=== PATIENT | female | born 1945 | race Caucasian/White ===

== ENCOUNTER 2021-09-17 18:25 | Inpatient (IN) | payer MEDICARE, BC ==
[~2021-09-17] VITALS: Ht 162.6 cm; Wt 67.1 kg
[2021-09-17] MEDS ORDERED: LISI20TA30 PO (18:48)
[2021-09-17] MEDS ORDERED: CHOL500050 PO (18:48)
[2021-09-17] MEDS ORDERED: CHLO50TA PO (18:48)
[2021-09-17] MEDS ORDERED: FESO4TAB PO (18:48)
[2021-09-17] MEDS ORDERED: MAGN400T40 PO (18:48)
[2021-09-17] MEDS ORDERED: LORA-259 PO (18:48)
[2021-09-17] MEDS ORDERED: ASPI81TA31 PO (18:48)
--- NOTE | 2021-09-17 19:09 | NUR ---
PT IS IN ROOM #2B. DR WILDER EVALUATED THE PT.
[2021-09-17] MEDS ORDERED: CHOLECALCIFEROL 1,000 UNIT TABLET ONE (20:30)
[2021-09-17] MEDS: CHOLECALCIFEROL 1,000 UNIT TABLET PO SCH (20:33)
[2021-09-17 20:36] LABS: MAGNESIUM 1.9 mg/dL (1.8-2.4)
--- NOTE | 2021-09-17 21:14 | NUR ---
Pt medically cleared by Dr. Cali
[2021-09-17] MEDS ORDERED: OLANZAPINE 5 MG TABLET PO ONE (21:15)
[2021-09-17] MEDS ORDERED: OLANZAPINE 5 MG TABLET ONE (21:16)
--- NOTE | 2021-09-17 21:25 | NUR ---
Report given to Laura CARTER MHU.
[2021-09-17] MEDS ORDERED: MAG HYDROX/AL HYDROX/SIMETH 30 ML LIQUID UDC PO PRN (21:45)
[2021-09-17] MEDS ORDERED: MAGNESIUM HYDROXIDE 30 ML LIQUID UDC PO PRN (21:45)
[2021-09-17] MEDS ORDERED: BLOOD SUGAR DIAGNOSTIC 1 EACH STRIP VI ONE (21:45)
[2021-09-17 22:15] VITALS: BP 148/83
[2021-09-17] MEDS: TEMAZEPAM 7.5 MG CAPSULE PO PRN (22:56)
[2021-09-17] MEDS: ACETAMINOPHEN 325 MG TABLET PO PRN (22:56)
--- NOTE | 2021-09-17 23:00 | NUR ---
GPS: Admitted to unit earlier a 76 yr.old female who was medically cleared in our E.R. Pt.is on a 72 hour hold for GD. Pt.was showing bizarre public behavior,refusing to shower,soiled pants on admission,wandering aimlessly and grossly delusional,per hold. Pt.was uncooperative,angry,refusing to answer questions during admission process. Agitated when asked to remove her multiple bracelets/jewelry. Refused body check despite explanation of importance. Unit rules explained. Pt's rights handbook and advisement given to pt. Safety emphasized. Unable to assess pt's orientation due to refusal to answer staff. Will continue to monitor.
[2021-09-17] MEDS: LORAZEPAM 1 MG TABLET PO PRN (23:57)
[2021-09-18 07:19] LABS: BILIRUBIN,TOTAL 1.3 mg/dL (0.2-1.0); CREATININE 0.7 mg/dL (0.6-1.3); POTASSIUM 3.7 mmol/L (3.5-5.1); TOTAL PROTEIN, SERUM 6.7 g/dL (6.4-8.2)
[2021-09-18 07:53] VITALS: BP 134/75
[2021-09-18] MEDS: CHOLECALCIFEROL 1,000 UNIT TABLET PO SCH (08:45)
[2021-09-18] MEDS ORDERED: OLANZAPINE 5 MG TABLET PO SCH (09:30)
[2021-09-18] MEDS: OLANZAPINE 2.5 MG TABLET PO SCH ×2 (10:32→17:37)
--- NOTE | 2021-09-18 13:00 | NUR ---
Received patient sleeping in her room. Pt. is A/O X 2 -3 to person, place, environment. Pt. is delusional "Can you give me a ride to airport? I need to go to " "Psychiatrist discharged me today. I need to go" "Can I talk to someone in charge, they are keeping me here against my will" Pt. is cooperative, sociable, anxious at times. Pt. is Compliant with medications. Patient is encourage to verbalize concerns. Fall and safety precautions implemented.
[2021-09-18 15:49] VITALS: BP 140/65
--- NOTE | 2021-09-18 18:42 | NUR ---
GPS: PT RECEIVED THIS AFTERNOON ON THE HALLWAY, SOMEWHAT ABXIOUS, TALKING ABOUT "I WANT TO GO TO THE AIRPORT BACK TO [place]". PT COOPERATIVE WITH CARE. TOLERATED MEDS . PT CONFUSED AND EXPLAINED THAT SHE IS ON HOLD AND ON LOCKED IN FACILITY AND CANNOT LEAVE THE UNIT. DENIES PAIN OR DISCOMFORT.
[2021-09-18] MEDS: ACETAMINOPHEN 325 MG TABLET PO PRN (20:45)
[2021-09-18 21:00] VITALS: BP 145/65
[2021-09-18] MEDS: TEMAZEPAM 7.5 MG CAPSULE PO PRN (21:53)
--- NOTE | 2021-09-19 00:05 | NUR ---
GPS: Pt.asleep at this time. Remains confused,disorganized. Poor insight to present situation. Needs frequent re-assurance and re-direction from staff. Safety emphasized. Compliant with her meds.so far. Will continue to monitor.
[2021-09-19] MEDS: OLANZAPINE 2.5 MG TABLET PO SCH ×2 (08:57→17:46)
[2021-09-19 10:21] VITALS: BP 157/65
--- NOTE | 2021-09-19 14:05 | NUR ---
GPS: FILED AND FAXED 14 DAY HOLD [facility] TODAY FOR GRAVE DISABILITY AND FAXED RECEIVED BY COURT. PT GIVEN A COPY.
[2021-09-19 14:52] VITALS: BP 114/77
--- NOTE | 2021-09-19 18:25 | NUR ---
Received patient sleeping in her room. Pt. is A/O X 3 to person. Pt. is cooperative, sociable, confused at times. Pt. is Compliant with medications. Patient is encourage to verbalize feelings and emotions. Fall and safety precautions implemented.
[2021-09-19 19:58] VITALS: BP 129/62
[2021-09-20 07:30] VITALS: BP 141/75
[2021-09-20] MEDS: OLANZAPINE 2.5 MG TABLET PO SCH ×2 (09:14→17:26)
[2021-09-20] MEDS: ACETAMINOPHEN 325 MG TABLET PO PRN (10:03)
--- NOTE | 2021-09-20 12:00 | NUR ---
SW Initial Discharge Note: Pt currently resides at home with her roommate, Michael located at [address] [address] ([phone]). Pt's sister, Jazzmine ([phone]) recommended a prison facility for continuation of care and was agreeable with this SW to work with the pt's MD and recommend a prison facility for the pt's safe discharge plan. Pt is agreeable to discharge to a prison facility. SW will continue to work with pt, family and MD to ensure a safe and proper discharge plan.
[2021-09-20 16:00] VITALS: BP 128/51
--- NOTE | 2021-09-20 18:42 | NUR ---
Patient is very confused at times "Why Am I here? I talk to my doctor and he let me out". "Call my doctor, I need to travel" Pt. is talkative, sociable, cooperative with care and compliant with medications. Fall and safety precautions implemented.
[2021-09-20 20:03] VITALS: BP 132/64
[2021-09-20] MEDS: LORAZEPAM 1 MG TABLET PO PRN (20:05)
[2021-09-20] MEDS: TEMAZEPAM 7.5 MG CAPSULE PO PRN (21:32)
[2021-09-21] MEDS: LORAZEPAM 1 MG TABLET PO PRN ×2 (02:05→20:05)
[2021-09-21 07:30] VITALS: BP 146/55
[2021-09-21] MEDS: OLANZAPINE 2.5 MG TABLET PO SCH ×2 (08:47→16:41)
[2021-09-21] MEDS: CHLORTHALIDONE 25 MG TABLET PO SCH (13:31)
--- NOTE | 2021-09-21 14:00 | NUR ---
Gps/Electric Welder Helper- Isolative , stays in her room most of the day, poor nutritional intake, encouraged fluids.Had been compliant with routine am meds. Poor initiation
--- NOTE | 2021-09-21 14:51 | NUR ---
GPS: [id number] [facility] HEARING DONE AND PT PARTICIPATED. PT RIGHT ADVOCATE SPOKE WITH PT. TEMPERING KILN TENDER DECISION REMAIN ON DTS AND GD.
[2021-09-21 15:45] LABS: *BILIRUBIN,URIN NEGATIVE (NEGATIVE); *BLOOD, URINE NEGATIVE (NEGATIVE); *CLARITY,URINE CLEAR (CLEAR); *COLOR,URINE YELLOW (YELLOW); *KETONES,URINE TRACE (NEGATIVE); *UROBILINOGEN,URINE 0.2 E.U./dl (NORMAL); LEUKOCYTE ESTERASE ,URINE 2+ (NEGATIVE); NITRITE, URINE POSITIVE (NEGATIVE); UGLUCOSE NEGATIVE (NEGATIVE)
[2021-09-21 16:46] VITALS: BP 130/58
[2021-09-21 19:03] LABS: BACTERIA,URINE MANY /HPF (NONE SEEN); SQUAMOUS EPITHELIAL CELL,UR MODERATE /HPF (NONE SEEN); WBC,URINE 80-100 /HPF (0-3)
[2021-09-21] MEDS: NITROFURANTOIN/NITROFURAN MAC 100 MG CAPSULE PO SCH (20:05)
[2021-09-21 20:55] VITALS: BP 166/80
[2021-09-21 21:22] VITALS: BP 134/83
[2021-09-21] MEDS: TEMAZEPAM 7.5 MG CAPSULE PO PRN (23:26)
--- NOTE | 2021-09-22 07:14 | NUR ---
GPS: Pt.slept 6.45 last night. Anxious last night at times. Medicated prn. Re-assured prn. Poor insight to present situation. Easily irritable when being persuaded to change clothes/shower. Safety emphasized. Will continue to monitor.
[2021-09-22 07:30] VITALS: BP 157/91
[2021-09-22] MEDS ORDERED: FESOTERODINE FUMARATE PO SCH (09:00)
[2021-09-22] MEDS: NITROFURANTOIN/NITROFURAN MAC 100 MG CAPSULE PO SCH ×2 (09:29→20:04)
[2021-09-22] MEDS: MAGNESIUM OXIDE 400 MG TABLET PO SCH (09:29)
[2021-09-22] MEDS: OLANZAPINE 2.5 MG TABLET PO SCH ×2 (09:29→16:58)
[2021-09-22] MEDS: ASPIRIN 81 MG TAB.CHEW PO SCH (09:29)
[2021-09-22] MEDS: LISINOPRIL 20 MG TABLET PO SCH (09:29)
[2021-09-22] MEDS: CHLORTHALIDONE 25 MG TABLET PO SCH (09:29)
--- NOTE | 2021-09-22 13:18 | NUR ---
Gps- Encouraged to attend her group therapy, prompted to take her routine am meds,questioned about he medications why she's taking too much per patient , reviewed each and everyone of her medications, verbalized understanding Offered to shower, refused , but she'll think about it per pt.
--- NOTE | 2021-09-22 15:35 | NUR ---
Gps/Convenience Recycle Center Tech- Patient's Sister Jazzmine called wants to talk to her sister's Psychiatrist, informed will give him the message ([phone])
[2021-09-22 16:00] VITALS: BP 144/91
[2021-09-22] MEDS: LORAZEPAM 1 MG TABLET PO PRN (20:04)
[2021-09-22 20:19] VITALS: BP 125/50
[2021-09-22] MEDS ORDERED: CHOL100062 PO (20:45)
[2021-09-22] MEDS: TEMAZEPAM 7.5 MG CAPSULE PO PRN (21:31)
--- NOTE | 2021-09-23 06:30 | NUR ---
GPS: Pt.now awake and currently watching tv. Less anxious at the moment. Re-assured and re-directed. Safe environment provided. No adverse reactions noted from atb. Encouraged increase PO fluids.
[2021-09-23 07:00] LABS: HEMATOCRIT 34.2 % (31.2-41.9); MEAN CORPUSCULAR HEMOGLOBIN 37.1 uug (24.7-32.8); MEAN CORPUSCULAR VOLUME 106.5 fL (75.5-95.3); PLATELET COUNT (AUTO) 248 K/uL (179-408)
[2021-09-23 07:20] LABS: THYROID STIMULATING HORMONE 1.059 mIU/mL (0.358-3.740)
[2021-09-23 07:30] VITALS: BP 150/69
[2021-09-23 07:36] LABS: BILIRUBIN,TOTAL 0.6 mg/dL (0.2-1.0); CREATININE 0.8 mg/dL (0.6-1.3); MAGNESIUM 1.9 mg/dL (1.8-2.4); PHOSPHOROUS 3.2 mg/dL (2.5-4.9); TOTAL PROTEIN, SERUM 6.6 g/dL (6.4-8.2)
--- NOTE | 2021-09-23 08:00 | NUR ---
Gps/Electromatic Typist- -In the activity room during the initial rounds, sitting up , per peer, patient c/o not feeling well , Blood sugar checked 184, skin dry, warm to touch, c/o light headed, offered to be taken to her room to be put to bed, refused, b/p 76/45 right arm, HR 94 , Left arm b/p 85/40, Hr 85 02 sat 92% on room air .Fluids offered and encouraged, Patient claimed she's feeling better, instructed to let staff know when she's ready to be assisted back to bed, patient preferred to stay up in the dinning room , monitored closely .
[2021-09-23] MEDS: LISINOPRIL 20 MG TABLET PO SCH ×2 (08:16→09:04)
[2021-09-23] MEDS: CHLORTHALIDONE 25 MG TABLET PO SCH ×2 (08:16→09:04)
[2021-09-23] MEDS: ASPIRIN 81 MG TAB.CHEW PO SCH (09:02)
[2021-09-23] MEDS: CHOLECALCIFEROL 1,000 UNIT TABLET PO SCH (09:02)
[2021-09-23] MEDS: MAGNESIUM OXIDE 400 MG TABLET PO SCH (09:02)
[2021-09-23] MEDS: ACETAMINOPHEN 325 MG TABLET PO PRN ×2 (09:02→17:22)
[2021-09-23] MEDS: NITROFURANTOIN/NITROFURAN MAC 100 MG CAPSULE PO SCH ×2 (09:03→20:14)
[2021-09-23] MEDS: OLANZAPINE 2.5 MG TABLET PO SCH ×2 (09:03→17:09)
--- NOTE | 2021-09-23 11:45 | NUR ---
Gps/Cooling System Operator- Stayed in bed this am. was able to take a short naps, claimed she's feeling a lot better, stayed in the dinning room during her meals . Safety reviewed and emphasized.
[2021-09-23 16:00] VITALS: BP 122/42
[2021-09-23 20:00] VITALS: BP 130/61
[2021-09-23] MEDS: TEMAZEPAM 7.5 MG CAPSULE PO PRN (21:33)
--- NOTE | 2021-09-24 05:51 | NUR ---
GPS: Remain calm and cooperative wi5th meds and care. slept 7.30 hrs through the night after sleeping meds given. no agitation noted.
[2021-09-24 08:05] VITALS: BP 125/58
[2021-09-24] MEDS: LISINOPRIL 20 MG TABLET PO SCH (09:17)
[2021-09-24] MEDS: OLANZAPINE 2.5 MG TABLET PO SCH ×2 (09:17→16:19)
[2021-09-24] MEDS: ASPIRIN 81 MG TAB.CHEW PO SCH (09:17)
[2021-09-24] MEDS: CHOLECALCIFEROL 1,000 UNIT TABLET PO SCH (09:17)
[2021-09-24] MEDS: CHLORTHALIDONE 25 MG TABLET PO SCH (09:17)
[2021-09-24] MEDS: NITROFURANTOIN/NITROFURAN MAC 100 MG CAPSULE PO SCH ×2 (09:17→20:28)
[2021-09-24] MEDS: MAGNESIUM OXIDE 400 MG TABLET PO SCH (09:35)
--- NOTE | 2021-09-24 15:34 | NUR ---
Patient received awake, A&Ox2, compliant with medications. Refused hygiene care, patient gets agitated when educated upon the importance of hygiene. Poor judgement and insight. Observed to have good appetite. Minimal participation in group therapy. closely monitoring observed.
[2021-09-24 16:10] VITALS: BP 137/60
--- NOTE | 2021-09-24 19:35 | NUR ---
Patient alert awake, seated at dining area socializing with other patient, Patient calm cooperative with medications, still refused to cooperate with hygiene, soiled pants, no s/s of delusion at this time, request for sleeping meds, cont to monitor.
[2021-09-24 19:51] VITALS: BP 155/61
[2021-09-24] MEDS: TEMAZEPAM 7.5 MG CAPSULE PO PRN (21:00)
--- NOTE | 2021-09-25 04:46 | NUR ---
Patient asleep but arousable, calm, stayed in bed most of the night, still refused to be change into clean pants, gets agitated when push, cont to monitor.
[2021-09-25 08:50] VITALS: BP 147/77
[2021-09-25] MEDS: CHOLECALCIFEROL 1,000 UNIT TABLET PO SCH (08:53)
[2021-09-25] MEDS: ASPIRIN 81 MG TAB.CHEW PO SCH (08:54)
[2021-09-25] MEDS: LISINOPRIL 20 MG TABLET PO SCH (08:54)
[2021-09-25] MEDS: MAGNESIUM OXIDE 400 MG TABLET PO SCH (08:54)
[2021-09-25] MEDS: CHLORTHALIDONE 25 MG TABLET PO SCH (08:59)
[2021-09-25] MEDS: OLANZAPINE 2.5 MG TABLET PO SCH ×2 (08:59→17:11)
[2021-09-25] MEDS: ACETAMINOPHEN 325 MG TABLET PO PRN ×2 (09:35→17:11)
[2021-09-25 16:15] VITALS: BP 114/56
[2021-09-25 19:50] VITALS: BP 124/65
[2021-09-25] MEDS: TEMAZEPAM 7.5 MG CAPSULE PO PRN (20:43)
--- NOTE | 2021-09-26 06:45 | NUR ---
GPS: Pt.slept for 6 hrs.last night. Calm,cooperative earlier. Safe environment provided. Needs attended. Will continue to monitor.
[2021-09-26 07:30] VITALS: BP 109/52
[2021-09-26] MEDS: ASPIRIN 81 MG TAB.CHEW PO SCH (08:25)
[2021-09-26] MEDS: LISINOPRIL 20 MG TABLET PO SCH (08:26)
[2021-09-26] MEDS: CHLORTHALIDONE 25 MG TABLET PO SCH (08:26)
[2021-09-26] MEDS: OLANZAPINE 2.5 MG TABLET PO SCH (08:26)
[2021-09-26] MEDS: MAGNESIUM OXIDE 400 MG TABLET PO SCH (08:26)
[2021-09-26] MEDS: CHOLECALCIFEROL 1,000 UNIT TABLET PO SCH (08:26)
--- NOTE | 2021-09-26 09:25 | NUR ---
GPS: PT RECEIVED AT ACTIVITY ROOM WATCHING TV, WITH PEERS. ABLE TO MAKE NEEDS KNOWN. OFFERED PT CLEAN PANTS TO WEAR. ENCOURAGE TO PARTIVIPATE MORE WITH GROUP ACTIVITY. DENIES SI/HI. ALERT/ORIENTED X2-3.
[2021-09-26] MEDS: ACETAMINOPHEN 325 MG TABLET PO PRN (09:36)
--- NOTE | 2021-09-26 15:12 | NUR ---
Family Contact: SW contacted Pt's sister, Jazzmine ([phone]) to discuss the pt's discharge update. Jazzmine is aware and agreeable with the pt's discharge to [address] [address] ([phone]).
[2021-09-26 15:24] VITALS: BP 112/58
[2021-09-26] MEDS: OLANZAPINE 5 MG TABLET PO SCH (17:41)
[2021-09-26 19:54] VITALS: BP 155/68
[2021-09-26] MEDS: TEMAZEPAM 7.5 MG CAPSULE PO PRN (21:13)
--- NOTE | 2021-09-26 21:26 | NUR ---
GPS: Pt.is calm and cooperative at this time. Requested for a sleeping pill earlier. Re-assured prn. Safety emphasized. Quiet environment provided to facilitate sleep. Will continue to monitor.
[2021-09-27 07:30] VITALS: BP 143/73
[2021-09-27] MEDS: LISINOPRIL 20 MG TABLET PO SCH (09:06)
[2021-09-27] MEDS: ACETAMINOPHEN 325 MG TABLET PO PRN ×2 (09:06→17:39)
[2021-09-27] MEDS: ASPIRIN 81 MG TAB.CHEW PO SCH (09:06)
[2021-09-27] MEDS: CHLORTHALIDONE 25 MG TABLET PO SCH (09:06)
[2021-09-27] MEDS: CHOLECALCIFEROL 1,000 UNIT TABLET PO SCH (09:06)
[2021-09-27] MEDS: OLANZAPINE 5 MG TABLET PO SCH ×2 (09:06→17:39)
[2021-09-27] MEDS: MAGNESIUM OXIDE 400 MG TABLET PO SCH (09:06)
[2021-09-27 16:00] VITALS: BP 147/78
--- NOTE | 2021-09-27 18:33 | NUR ---
GPS: PT ALERT AND VERBALLY RESPONSIBLE AND ABLE TO MAKE NEEDS KNOWN. COMPLIANT WITH CARE AND MEDS. NO EPISODE OF DELUSION NOTED. PT SEEN ATTENDING GROUP THERAPY AND PLEASANT WITH OTHER PEERS. FALL AND SAFETY PRECAUTION NOTED
[2021-09-27 20:17] VITALS: BP 159/68
[2021-09-27] MEDS: TEMAZEPAM 7.5 MG CAPSULE PO PRN (21:40)
[2021-09-28 07:30] VITALS: BP 130/76
[2021-09-28] MEDS: MAGNESIUM OXIDE 400 MG TABLET PO SCH (08:38)
[2021-09-28] MEDS: OLANZAPINE 5 MG TABLET PO SCH ×2 (08:38→17:39)
[2021-09-28] MEDS: CHOLECALCIFEROL 1,000 UNIT TABLET PO SCH (08:38)
[2021-09-28] MEDS: ASPIRIN 81 MG TAB.CHEW PO SCH (08:38)
[2021-09-28] MEDS: LISINOPRIL 20 MG TABLET PO SCH (08:38)
[2021-09-28] MEDS: CHLORTHALIDONE 25 MG TABLET PO SCH (08:39)
--- NOTE | 2021-09-28 09:01 | NUR ---
HERMILO Discharge Note: Pt will be discharged to [facility] [address] [place] [address] via Ambulance transportation at 11AM. HERMILO spoke with admin coordinator, Kaykay ([phone]) at the facility who states they are ready to accept the patient today. Pt is aware and agreeable with discharge plans. Pts sister, Jazzmine ([phone]) is aware and agreeable with the discharge plan. Pt is alert and oriented x2, is unable to plan for self-care at this time; however, is willing to accept care at SNF. Pt denies any suicidal or homicidal ideation. Pt will follow-up at the facility with Psychiatrist, Dr. Irwin and Horseradish Grinder, Dr. Woods. Pt presents with calm mood and congruent affect. PHARMACY: [facility] ([phone]) [address] [place] [address].
[2021-09-28 15:02] VITALS: BP 126/80
[2021-09-28] MEDS: ACETAMINOPHEN 325 MG TABLET PO PRN (17:39)
--- NOTE | 2021-09-28 18:16 | NUR ---
GPS: PT RECEIVED TODAY. PLEASANT AND COMPLIANT WITH CARE AND MEDS. ON CONGRUENT MOOD AND AFFECT. NO AGITATION NOTED. ENJOYED WATCHING TV WITH PEERS. PT HAPPY THAT SHE WILL BE DISCHARGE TONIGHT TO [facility] VIA AMBULANCE TRANSPORTATION. PT SISTER CALLED AND MADE AWARE OF THE DC PLAN. ALL DOCUMENTS SIGNED.
--- NOTE | 2021-09-28 18:54 | NUR ---
GPS: PT DISCHARGED TO FACILITY. COOPERATIVE WITH THE TRANSFER. COMPLIANT WITH CARE AND MEDS THIS AFTERNOON. ALL BELONGINGS GIVEN AND FORMS SIGNED. PSYCHIATRIST MADE AWARE.
== END 2021-09-28 18:40 | DRG 885 ==
LOC: ER 18:29 → GPS 21:36
PROVIDERS: ADMIT Nurse Practitioner Psychiatric/Mental Health; ATTEND Internal Medicine
DX: F22 Delusional disorders (principal); F23 Brief psychotic disorder; N39.0 Urinary tract infection, site not specified; R17 Unspecified jaundice; F29 Unspecified psychosis not due to a substance or known physiological condition; I10 Essential (primary) hypertension; E55.9 Vitamin D deficiency, unspecified; E86.1 Hypovolemia; F32.A Depression, unspecified; F41.9 Anxiety disorder, unspecified; Z79.82 Long term (current) use of aspirin; G62.9 Polyneuropathy, unspecified; N32.81 Overactive bladder; R73.9 Hyperglycemia, unspecified; Z20.822 Contact with and (suspected) exposure to COVID-19; B96.20 Unspecified Escherichia coli [E. coli] as the cause of diseases classified elsewhere; Z73.6 Limitation of activities due to disability; M62.81 Muscle weakness (generalized)
CPT/HCPCS: 36415; 83735; 83921; 84100; 84443; 85025; 87077; 87086; 97161; A4663